=== PATIENT | male | born 1985 | race Two or more races ===

== ENCOUNTER 2019-01-14 05:35 | Emergency (ER) | payer SELFPAY ==
[~2019-01-14] VITALS: Ht 175.3 cm; Wt 86.6 kg
[2019-01-14 05:45] VITALS: BP 127/82
--- NOTE | 2019-01-14 05:45 | NUR ---
ED Nurse Note: Pt arrived ED from home, c/o abscess on buttcks area for 2 days with redness and pain 10. Pt is A/O X4. Vital signs stable at this time, waiting for orders.
--- NOTE | 2019-01-14 07:17 | NUR ---
HAND-OFF: Report given to Simi/RN for continue care. Pt is a/o x 3. VSS.
[2019-01-14] MEDS ORDERED: BACTRIM DS TAB1 EAC1 ORAL (07:35)
[2019-01-14] MEDS ORDERED: ACETAMINOPHEN-1 EAC1 ORAL (07:35)
[2019-01-14] MEDS ORDERED: CEPHALEXIN500 MG ORAL (07:35)
[2019-01-14 07:40] VITALS: BP 125/80
--- NOTE | 2019-01-14 07:40 | NUR ---
ER DISCHARGE NOTE: Patient is cleared to be discharged per ERMD, pt is aox4, on room air, with stable vital signs. pt was given dc and prescription instructions, pt was able to verbalize understanding, pt id band removed without complications. pt is able to ambulate with steady gait. pt took all belongings.
--- NOTE | 2019-01-14 08:56 | Emergency Room Report ---
History of Present Illness General Chief Complaint: Skin Rash/Abscess Source: Patient Present Illness HPI 33-year-old male presents ED for evaluation. Patient walked in complaining of a "boil" on his rectum. Started 1 week ago. Was seen at urgent care at the time and was recommended to do warm soaks. States it has not gotten better and has gotten worse. Pain is throbbing, 9 out of 10, nonradiating. Denies fevers or chills. Unable to sit comfortably. Denies any discharge. No other aggravating or relieving factors. Denies any other associated symptoms Allergies: Coded Allergies: No Known Allergies (Unverified , 01/14/19) Patient History Past Medical History: none Past Surgical History: none Pertinent Family History: none Social History: Denies: smoking, alcohol use, drug use Immunizations: UTD Reviewed Nursing Documentation: PMH: Agreed; PSxH: Agreed Nursing Documentation-PMH Past Medical History: No Stated History Review of Systems All Other Systems: negative except mentioned in HPI Physical Exam Vital Signs Date Time Temp Pulse Resp B/P (MAP) Pulse Ox O2 Delivery O2 Flow Rate FiO2 01/14/19 05:38 99.7 114 20 127/82 (97) 98 Room Air Sp02 EP Interpretation: reviewed, normal General Appearance: no apparent distress, alert, GCS 15, non-toxic Head: normocephalic Eyes: bilateral eye normal inspection, bilateral eye PERRL ENT: normal ENT inspection Neck: normal inspection Respiratory: normal inspection Cardiovascular #1: normal inspection Gastrointestinal: normal inspection Rectal: other - abscess to L buttock close to rectum. + fluctuance. no discharge Genitourinary: no CVA tenderness Musculoskeletal: normal inspection Neurologic: alert, oriented x3, responsive, motor strength/tone normal, sensory intact, speech normal Psychiatric: normal inspection Skin: normal inspection Lymphatic: normal inspection Procedures Incision and Drainage Incision and Drainage : Consent: Written Blade Size: 11 I & D Procedure: betadine prep, sterile drapes applied, sterile dressing applied Wound Location: other - buttock Wound's Depth, Shape: other - abscess Wound Explored: purulent discharge Anesthesia: 1% Lidocaine Splint Applied?: No Sling Applied?: No Patient Tolerated: Well Complications: None Medical Decision Making Diagnostic Impression: Primary Impression: Abscess ER Course Hospital Course 33-year-old M presents to ED abscess to buttock Clinical course Patient placed on stretcher. After initial history and physical I anesthetsized with lidocaine drained without complication. Dressing applied discussed findings with patient. Will discharge on antibiotics. Warm soaks. Safe for discharge for close outpatient follow-up. I will provide referrals Diagnosis - abscess Stable and discharged to home with prescription for tylenol #3, bactrim, keflex. warm soaks. wound Care instructions given. Followup with PMD. Return to ED if any signs of infection develop Last Vital Signs Date Time Temp Pulse Resp B/P (MAP) Pulse Ox O2 Delivery O2 Flow Rate FiO2 01/14/19 07:40 99.7 90 20 125/80 98 Room Air Status: improved Disposition: HOME, SELF-CARE Condition: Stable Scripts Trimethoprim/Sulfamethoxazole 160/800* (BACTRIM DS TABLET*) 1 Each Tablet 1 TAB ORAL Q12H, #14 TAB 0 Refills Prov: Dominguez Silveira MD 01/14/19 Cephalexin* (KEFLEX*) 500 Mg Capsule 500 MG ORAL EVERY 6 HOURS for 7 Days, CAP Prov: Dominguez Silveira MD 01/14/19 Acetaminophen With Codeine (T#3) (TYLENOL #3 TAB*) Y Tab 1 TAB ORAL Q8H PRN for For Pain, #12 TAB Prov: Dominguez Silveira MD 01/14/19 Referrals: NOT CHOSEN IPA/,REFERRING (PCP) [facility] Patient Instructions: Abscess Dominguez Silveira MD Jan 14, 2019 08:56
== END 2019-01-14 07:40 | disposition home or self-care (01) ==
LOC: EMR 06:30
DX: L02.31 Cutaneous abscess of buttock (principal)
CPT/HCPCS: 99283